=== PATIENT | female | born 1975 | race Caucasian/White ===

== ENCOUNTER → 2021-07-27 13:28 | Outpatient (CLI) | payer OTHER, SELFPAY ==
--- NOTE | 2021-07-27 | DI.US.S_ITS ---
LIMITED ULTRASOUND OF LEFT BREAST: 07/27/2021 CLINICAL: Patient returns today to evaluate an asymmetry in the left breast. Comparison is made to exams dated: 07/27/2021 mammogram - [facility], 06/28/2021 mammogram, 05/03/2020 mammogram, 10/15/2018 mammogram, and 01/12/2015 mammogram - [facility]. Color flow and real-time ultrasound of the left breast were performed on the areas of interest. There is a 0.8 cm x 0.3 cm x 0.5 cm cluster of oval cysts with a septated internal wall in the left breast at 3 o'clock middle depth 7 cm from the nipple. This cluster of oval cysts is hypoechoic with internal echoes and posterior acoustic enhancement. This may correlate with mammography findings. Color flow imaging demonstrates that there is no vascularity present. There also is a 1 cm x 0.3 cm x 0.7 cm irregular area of fibrocystic tissue with an indistinct and circumscribed margin in the left breast at 3 o'clock anterior depth 2 cm from the nipple. This irregular area of fibrocystic tissue is hypoechoic. This may correlate with mammography findings. Color flow imaging demonstrates that there is no vascularity present. IMPRESSION: PROBABLY BENIGN The 0.8 cm x 0.3 cm x 0.5 cm cluster of oval cysts in the left breast at 3 o'clock middle depth is probably benign. Follow-up mammogram and ultrasound in 6 months is recommended. The 1 cm x 0.3 cm x 0.7 cm irregular area of fibrocystic tissue in the left breast at 3 o'clock anterior depth is probably benign. Follow-up mammogram and ultrasound in 6 months is recommended. A follow-up mammogram and an ultrasound in 6 months are recommended to demonstrate stability. This exam was interpreted at Station ID: [id number]. Electronically Signed By: Andrea rodriguez/:08/03/2021 13:08:52 letter sent: Followup Recommended Ultrasound BI-RADS: 3 Probably benign
--- NOTE | 2021-07-27 | DI.MG.S_ITS ---
UNILATERAL LEFT DIGITAL DIAGNOSTIC MAMMOGRAM 3D/2D WITH ADDITIONAL VIEWS: 07/27/2021 CLINICAL: Additional evaluation requested from prior study. Comparison is made to exams dated: 05/03/2020 mammogram, 10/15/2018 mammogram, and 01/12/2015 mammogram - [facility]. There are scattered fibroglandular elements in left breast. The oval equal density asymmetry with indistinct margins in the left breast middle depth lateral region seen on the craniocaudal view only is less prominent on additional views. No other significant masses or calcifications are seen in the breast. IMPRESSION: INCOMPLETE: NEEDS ADDITIONAL IMAGING EVALUATION The oval equal density asymmetry in the left breast is indeterminate. An ultrasound is recommended. Ultrasound will be performed immediately following the current exam. This exam was interpreted at Station ID: [id number]. NOTE: For mammograms, a report in lay terms will be sent to the patient. Approximately 15% of breast malignancies will not be visualized mammographically. In the management of a palpable breast mass, a negative mammogram must not discourage biopsy of a clinically suspicious lesion. Electronically Signed By: Andrea Call M.D. ddp/:08/03/2021 13:08:37 ACR BI-RADS Category 0: Incomplete [id number]
== END ==
PROVIDERS: Family Provider Family Medicine; PCP Physician Assistant Medical; Referring Provider Physician Assistant Medical; Visit Provider Physician Assistant Medical
DX: R92.8 Other abnormal and inconclusive findings on diagnostic imaging of breast (principal); N60.02 Solitary cyst of left breast
CPT/HCPCS: 76642; 77065; G0279

== ENCOUNTER → 2022-01-18 14:11 | Outpatient (CLI) | payer OTHER, SELFPAY ==
--- NOTE | 2022-01-18 | DI.MG.S_ITS ---
UNILATERAL LEFT DIGITAL DIAGNOSTIC MAMMOGRAM 3D/2D: 01/18/2022 CLINICAL: Short term follow up for the left breast. Comparison is made to exams dated: 07/27/2021 ultrasound, 07/27/2021 mammogram - [facility], 06/28/2021 mammogram, and 05/03/2020 mammogram - [facility]. There are scattered fibroglandular elements in left breast. There is an asymmetry in the left breast middle depth lateral region seen on the craniocaudal view only. No other significant masses or calcifications are seen in the breast. IMPRESSION: INCOMPLETE: NEEDS ADDITIONAL IMAGING EVALUATION The asymmetry in the left breast is indeterminate. An ultrasound is recommended. Based on the Tyrer Cuzick model (a risk assessment model) the patient's lifetime risk is 5.2% and her 10 year risk is 1.1%. According to the ACR, ACS, and NCCN guidelines, an annual breast MRI exam along with mammogram is recommended if the patient's lifetime risk is 20% or greater. This exam was interpreted at Station ID: [id number]. NOTE: For mammograms, a report in lay terms will be sent to the patient. Approximately 15% of breast malignancies will not be visualized mammographically. In the management of a palpable breast mass, a negative mammogram must not discourage biopsy of a clinically suspicious lesion. Electronically Signed By: Cj Rodriguez M.D. lc/:01/18/2022 15:11:57 ACR BI-RADS Category 0: Incomplete [id number]
--- NOTE | 2022-01-18 | DI.US.S_ITS ---
LIMITED ULTRASOUND OF LEFT BREAST: 01/18/2022 CLINICAL: Patient returns today for a 6month followup to evaluate 2 previous cysts seen in the left breast. No prior exams were available for comparison. Color flow and real-time ultrasound of the left breast 3 o'clock region were performed. Barriga scale images of the real-time examination were reviewed. There is a 0.3 cm x 0.3 cm x 0.3 cm cluster of oval cysts in the left breast at 3 o'clock 7 cm from the nipple. This correlates with mammography findings. This is decreased in size. There also is a 0.5 cm x 0.3 cm x 0.5 cm cluster of oval cysts in the left breast at 3 o'clock 2 cm from the nipple. This correlates with mammography findings. This is decreased in size. IMPRESSION: PROBABLY BENIGN The 0.3 cm x 0.3 cm x 0.3 cm cluster of oval cysts in the left breast at 3 o'clock is probably benign. Follow-up mammogram and ultrasound in 6 months is recommended. The 0.5 cm x 0.3 cm x 0.5 cm cluster of oval cysts in the left breast at 3 o'clock is probably benign. Follow-up mammogram and ultrasound in 6 months is recommended. These are decreased in size. A follow-up mammogram and an ultrasound in 6 months is recommended to demonstrate stability. This exam was interpreted at Station ID: [id number]. Electronically Signed By: Cj Rodriguez M.D. lc/:01/18/2022 15:36:37 letter sent: Followup Recommended Ultrasound BI-RADS: 3 Probably benign
== END ==
PROVIDERS: Family Provider Family Medicine; PCP Physician Assistant Medical; Referring Provider Physician Assistant Medical; Visit Provider Physician Assistant Medical
DX: R92.8 Other abnormal and inconclusive findings on diagnostic imaging of breast (principal); N60.02 Solitary cyst of left breast
CPT/HCPCS: 76642; 77065; G0279